=== PATIENT | female | born 2005 | race Caucasian/White ===

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

== ENCOUNTER 2024-05-05 16:33 | Emergency (ER) | payer MEDICAID, SELFPAY ==
[2024-05-05 16:37] VITALS: BP 131/81; PULSE 102; RESP 20; TEMP 36.6; O2SAT 98; BMI 34.0
[2024-05-05 16:47] VITALS: BP 167/88; PULSE 103; O2SAT 100
--- NOTE | 2024-05-05 16:47 | XRR_ITS ---
PROCEDURE INFORMATION: Exam: XR Lumbosacral Spine Exam date and time: 05/05/2024 5:58 PM Age: 19 years old Clinical indication: Low back pain and lumbago with sciatica; Bilateral; Additional info: Back pain x 1 day, hurt trying to carry bed frame, pain radiates from lower back down butt and both legs TECHNIQUE: Imaging protocol: Radiologic exam of the lumbosacral spine. Views: 2 or 3 views. COMPARISON: CT abdomen pelvis w con* [id number] 10/16/2020 10:05 PM FINDINGS: Bones/joints: Normal. No acute fracture. Normal alignment. Soft tissues: Unremarkable. XR/XR lumbar spine 2-3V* [id number] IMPRESSION: No acute findings.
--- NOTE | 2024-05-05 16:48 | ED_ITS ---
HPI - Back Pain/Injury General: Chief Complaint: Back Pain/Injury Stated Complaint: severe low back pain Time Seen by Provider: 05/05/24 16:43 Source: EMS Mode of arrival: EMS Limitations: no limitations History of Present Illness: 19-year-old female states that she had a low back pain over the last 2 days she states she lifted a bed frame 2 days ago and felt a sudden sharp pain in her right lower back states she been having pain in her right back since then she denies any radiation down her leg denies any bowel or bladder incontinence. Patient states that pain is improved with rest much worse with movement. Associated symptoms: Deny abdominal pain, chills, fever(s), nausea or vomiting Related Data Previous Rx's Medication Instructions Recorded doxycycline hyclate 100 mg capsule 100 mg PO BID #28 caps 06/03/23 metronidazole 500 mg tablet 500 mg PO BID #28 tabs 06/03/23 methocarbamol 750 mg tablet 750 mg PO Q6H PRN spasms #20 tabs 05/05/24 naproxen 500 mg tablet (Naprosyn) 500 mg PO BID PRN pain #20 tabs 05/05/24 Allergies Allergy/AdvReac Type Severity Reaction Status Date / Time amoxicillin Allergy Severe ALGY-Anaphy Verified 06/03/23 09:32 laxis adhesive tape Allergy Rash Verified 06/03/23 09:32 Penicillins Allergy ADR-Vomitin Verified 06/03/23 09:32 g Sulfa (Sulfonamide AdvReac Intermediate ADR-Nose Verified 06/03/23 09:32 Antibiotics) Bleed stitches Allergy Mild ALGY-Redness Uncoded 06/03/23 09:32 of Skin stiching Allergy Unknown Uncoded 06/03/23 09:32 Review of Systems Const: Denies: fever(s), chills, body aches or change in appetite ENMT: Denies: throat pain or dental pain Card: Denies: chest pain Resp: Denies: dyspnea GI: Denies: abdominal pain, nausea, vomiting or diarrhea Musc: Reports: back pain; Denies: neck pain Neuro: Denies: weakness in extremities PFS ED PFSH: Medical History No pertinent past medical history neghx: htn,dm,thyroid,dvt/pe PCP: [facility] Fatty liver Recurrent biliary colic Right upper quadrant pain Rectal bleeding in pediatric patient Fracture of distal fibula Surgical History Hx laparoscopic cholecystectomy History of bunionectomy of both great toes Family History Grandfather Diabetes paternal Mother Hypertension Grandmother Hyperlipidemia maternal Family/Other Hyperlipidemia maternal aunt, paternal uncle Father Hyperlipidemia Thyroid disease Denies family history of Colon cancer Ovarian cancer Heart disease Breast cancer Uterine cancer Stroke Physical Exam Const: COMMON NORMALS: no acute distress, patient oriented x3 and healthy appearing HENMT: COMMON NORMALS: normocephalic and atraumatic HEAD & SCALP: normocephalic and atraumatic Neck/C-Spine: COMMON NORMALS: full ROM and supple Chest: COMMONS NORMALS: normal inspection of the chest Resp: COMMON NORMALS: normal respiratory effort Cardio: RATE: tachycardic Back/Pelvis: OTHER: Right lower back tenderness no midline tenderness no saddle anesthesia Extremity: COMMON NORMALS: normal to inspection and full ROM Neuro: COMMON NORMALS: patient oriented x3, moves all extremities and no focal motor deficits Psych: COMMON NORMALS: mental status grossly normal, Normal thought process present and cooperative THOUGHT PROCESS: Normal thought process present Skin: COMMON NORMALS: no rashes or lesions noted and no wounds GENERAL SKIN EXAM: no rashes or lesions noted Course Vital Signs: Vital signs: Vital Signs Temperature 97.9 F 05/05/24 16:37 Pulse Rate 103 H 05/05/24 16:47 Respiratory Rate 20 H 05/05/24 16:37 Blood Pressure 167/88 05/05/24 16:47 Pulse Oximetry 100 05/05/24 16:47 Oxygen Delivery Me thod Room Air 05/05/24 16:47 MDM - Back Pain/Injury Medical Decision Making Patient presents with lumbar strain imaging here is negative is likely a [id number] or injury. No signs of epidural abscess or cord compression. Will place her on Naprosyn Robaxin she is to ice and rest follow-up with PCP return if worsening Medical Records I reviewed the patient's medical records. Labs Laboratory Results HCG, Qual Negative (Negative) 05/05/24 17:15 XR interpretation done by ED provider, pending radiology final review ED provider radiology interpretation(s): xr lumbar spine: no acute abnormality Discharge Plan Discharge Patient Disposition: Home Clinical Impression: Strain of lumbar region Qualifiers: Encounter type: initial encounter Qualified Code(s): S39.012A - Strain of muscle, fascia and tendon of lower back, initial encounter Condition: Stable Prescriptions: New methocarbamol 750 mg tablet 750 mg PO Q6H PRN (Reason: spasms) Qty: 20 0RF Naprosyn 500 mg tablet 500 mg PO BID PRN (Reason: pain) Qty: 20 0RF No Action doxycycline hyclate 100 mg capsule 100 mg PO BID Qty: 28 0RF metronidazole 500 mg tablet 500 mg PO BID Qty: 28 0RF Discharge Orders: Discharge ED (Routine); Ordered 05/05/24 Ordered By: Gerson Donaldson Discharge Diet: Advance as tolerated Discharge Activity: Resume usual activity Patient Instructions: Low Back Strain (ED) Coding Level of Care Code ED Blasting Worker for Fady Moffett
[2024-05-05] MEDS: methocarbamol 750 mg Tablet 1500 MG PO (16:52)
[2024-05-05] MEDS: HYDROcodone-acetaminophen 7.5-325 mg Tablet 1 TAB PO (16:52)
[2024-05-05] MEDS: ketorolac 60 mg/2 mL INJ IM (16:53)
[2024-05-05 17:44] LABS: HCG Qualitative Urine. Negative (Negative)
[2024-05-05 18:31] VITALS: BP 125/71; PULSE 91; O2SAT 100
== END 2024-05-05 18:33 | disposition home or self-care (01) ==
PROVIDERS: Emergency Provider Emergency Medicine
DX: S39.012A Strain of muscle, fascia and tendon of lower back, initial encounter (principal); X50.0XXA Overexertion from strenuous movement or load, initial encounter
CPT/HCPCS: 72100; 81025; 96372; 99284; J1885

== ENCOUNTER → 2025-01-20 15:20 | Outpatient (BNVA) | payer MEDICAID, SELFPAY | PROVIDERS: Visit Provider Nurse Practitioner Women's Health | DX: Z36.87 Encounter for antenatal screening for uncertain dates (principal) | CPT/HCPCS: 76801; 81025 ==

== ENCOUNTER → 2025-03-02 08:33 | Outpatient (BNVA) | payer BC, MEDICAID, SELFPAY | PROVIDERS: Visit Provider Nurse Practitioner Women's Health | DX: Z34.90 Encounter for supervision of normal pregnancy, unspecified, unspecified trimester (principal) | CPT/HCPCS: 80307; 80324; 80359; 84315; 85025; 86592; 86762; 86803; 86850; 86900; 87086; 87340; 87806 ==

== ENCOUNTER → 2025-04-25 10:05 | Outpatient (BNVA) | payer BC, MEDICAID, SELFPAY | PROVIDERS: Visit Provider Nurse Practitioner Women's Health | DX: Z36.9 Encounter for antenatal screening, unspecified (principal) | CPT/HCPCS: 76805 ==

== ENCOUNTER 2025-04-28 06:21 | Outpatient (CLI) | payer BC, MEDICAID, SELFPAY ==
[2025-04-28 06:10] VITALS: BMI 35.3
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
[2025-04-28 06:33] VITALS: BP 153/74; PULSE 100
[2025-04-28 06:36] VITALS: TEMP 36.8
[2025-04-28 07:15] VITALS: BP 152/70; PULSE 100; RESP 18
== END 2025-04-28 07:05 | disposition home or self-care (01) ==
LOC: OPOB 06:22 → OBGYN 06:23
PROVIDERS: Visit Provider Obstetrics & Gynecology
DX: O26.899 Other specified pregnancy related conditions, unspecified trimester (principal); Z3A.00 Weeks of gestation of pregnancy not specified; R10.9 Unspecified abdominal pain
CPT/HCPCS: 76815; 99211

== ENCOUNTER 2025-04-28 07:18 | Emergency (ER) | payer BC, MEDICAID, SELFPAY ==
--- NOTE | 2025-04-28 07:20 | XR_ITS ---
WS: [id number] Right shoulder, 3 views, 04/28/2025 Clinical Data: Trauma Comparison: Right shoulder, 07/25/2022 Findings: No fractures or dislocations are seen. The AC joint is normal. The adjacent right clavicle, right scapula and ribs are normal. The soft tissues are unremarkable. XR/XR shoulder RT min 2V* [id number] Impression: Negative right shoulder.
[2025-04-28 07:28] VITALS: BP 131/92; PULSE 107; RESP 16; TEMP 36.7; O2SAT 100
[2025-04-28] MEDS: tetanus-dipt-pertussis 0.5 mL SDV IM (07:33)
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
[2025-04-28 08:27] VITALS: BP 132/84; PULSE 110; O2SAT 100
== END 2025-04-28 08:26 | disposition home or self-care (01) ==
PROVIDERS: Emergency Provider Family Medicine
DX: M25.511 Pain in right shoulder (principal); S80.211A Abrasion, right knee, initial encounter; S00.81XA Abrasion of other part of head, initial encounter; V28.01XA Electric (assisted) bicycle driver injured in noncollision transport accident in nontraffic accident, initial encounter; F17.210 Nicotine dependence, cigarettes, uncomplicated
CPT/HCPCS: 73030; 90471; 90715; 99283; A4565

== ENCOUNTER 2025-09-10 19:00 | Inpatient (IN) | payer BC, MEDICAID, SELFPAY ==
[2025-09-10] VITALS (52 sets, daily range): BP systolic 116–219; BP diastolic 58–121; PULSE 82–121; RESP 16–18; TEMP 36.2–36.7; O2SAT 77–99; BMI 42.2
[2025-09-10 11:53] LABS: Nitrazine Paper, PH Inconclusive
[2025-09-10 12:29] LABS: Glucose Urine UA Negative (Normal); Nitrate Urine Negative (Negative); Specific Gravity, Urine 1.018 (1.005-1.030)
[2025-09-10 12:31] LABS: Hematocrit 32.0 % (36-47); Hemoglobin 10.30 g/dL (11.27-16.99); Mean Corpuscular HGB Conc 32.2 g/dL (30-55); Mean Corpuscular Hemoglobin 26.5 pg (27-33); Mean Corpuscular Volume 82.3 fl (85-98); Nucleated Red Blood Cells % 0 %; Platelet Count 328 10^3/cmm (157-399); Red Blood Count 3.89 10^6/uL (3.85-5.65); White Blood Count 17.62 10^3/uL (3.29-11.43)
[2025-09-10 12:34] LABS: Add Urine Microscopic? YES
[2025-09-10] MEDS: labetalol 5 mg/mL SDV 20mL 20 MG IVP (12:37)
[2025-09-10 12:38] LABS: PCP Screen Urine Negative (Negative)
[2025-09-10 12:46] LABS: UPRO/UCREAT Ratio 0.63 mg/mg CR
[2025-09-10 12:53] LABS: Alanine Aminotransferase 16 U/L (0-33); Albumin Level 3.3 g/dL (3.5-5.2); Alkaline Phosphatase 193 U/L (35-105); Anion Gap 16.9 (5-19); Aspartate Amino Transferase 18 U/L (0-32); Blood Urea Nitrogen 17 mg/dL (6-20); Calcium 9.7 mg/dL (8.5-10.5); Carbon Dioxide 20 mmol/L (22-29); Chloride 102 mmol/L (98-107); Globulin 3.2 g/dL (1.3-4.6); Glucose 89 mg/dL (65-115); Osmolality Calculated 281 mOsm/kg (285-295); Potassium 3.9 mmol/L (3.5-5.1); Sodium 135 mmol/L (136-145); Total Protein 6.5 g/dL (6.6-8.7); Uric Acid 6.2 mg/dL (2.4-5.7)
[2025-09-10] MEDS: labetalol 5 mg/mL SDV 20mL 40 MG IVP (13:01)
[2025-09-10] MEDS: magnesium sulfate premix 4 GM/100 ML PREMIX IV (13:50)
[2025-09-10] MEDS: magnesium sulfate premix 20 GM/500 ML BAG IV ×2 (13:59→23:24)
[2025-09-10] MEDS: oxytocin 30 UNIT/500 ML BAG IV (14:48)
--- NOTE | 2025-09-10 17:24 | P.ANESASSM_ITS ---
Pre-Anesthetic Assessment Height/Weight: Height 1.78 m Weight 129.727 kg Temp Pulse Resp BP O2 Del Method 98.0 F 87 18 172/104 Room Air 09/10/25 16:59 09/10/25 17:01 09/10/25 16:59 09/10/25 17:01 09/10/25 16:59 Preop Diagnosis: IUP Labor Epidural Was Beta Rogers taken within 24 hours: Yes Last intake: 1100 solid meal clears current. Social Tobacco (vapes) Methamphetamine use 1200 yesterday Airway Submandibular: within normal limits Cervical ROM: within normal limits Mallampati: Class II Dentition: full Comments: Comments: multiple piercing Pulmonary None reported vapes CV/HEM Hypertension Pre-eclampsia, Mg 2G/hr, pitocin. None reported Hepatic fatty liver GI Gastroesophageal Reflux Disease Metabolic Morbid Obesity [facility] None reported Anesthetic Plan Other: Meconium stained amniotic fluid WBC 17,000 abscence of fever or tachycardia. Medications/Allergies Home Medications ?Medication ?Instructions ?Recorded ?Confirmed ?Last Taken ?Type vitamins 30 30 mg iron-10 2 cap PO DAILY 02/1305/11/25 Unknown History mg iron-folic acid 1 mg-om3 capsule mupirocin 2 % topical ointment 1 applic topical BID #2 2 grams 04/28/25 05/11/25 Unknown Rx Allergies Allergy/AdvReac Type Severity Reaction Status Date / Time amoxicillin Allergy Severe ALGY-Anaphy Verified 05/11/25 13:36 laxis adhesive tape Allergy Rash Verified 05/11/25 13:36 Penicillins Allergy ADR-Vomitin Verified 05/11/25 13:36 g Sulfa (Sulfonamide AdvReac Intermediate ADR-Nose Verified 05/11/25 13:36 Antibiotics) Bleed stitches Allergy Mild ALGY-Redness Uncoded 05/11/25 13:36 of Skin stiching Allergy Unknown Uncoded 05/11/25 13:36 Current Medications Generic Name Dose Route Start Last Admin Trade Name Freq PRN Reason Stop Dose Admin Magnesium Sulfate 20 gm in 500 mls @ 50 mls/hr 09/10/25 13:15 09/10/25 13:59 Magnesium Sulfate Premix IV 50 mls/hr .Q10H WILFRED Administration Oxytocin 30 unit in 500 mls @ 1 mls/hr 09/10/25 14:30 09/10/25 16:15 Pitocin IV 4 milliunit/min .Q24H WILFRED 4 mls/hr Protocol Titration 1 MILLIUNIT/MIN Labetalol HCl 20 mg 09/10/25 12:20 09/10/25 12:37 Labetalol 5 Mg/Ml Sdv 20ml IVP 20 mg PRN PRN Administration HYPERTENSION Protocol Labetalol HCl 40 mg 09/10/25 12:20 09/10/25 13:01 Labetalol 5 Mg/Ml Sdv 20ml IVP 40 mg PRN PRN Administration HYPERTENSION Protocol [facility] Anesthesia Medical History (Updated 05/06/25 @ 00:00 by ELLIE Carrington) Obesity No pertinent past medical history neghx: htn,dm,thyroid,dvt/pe PCP: [facility] Fatty liver Recurrent biliary colic Right upper quadrant pain Rectal bleeding in pediatric patient Fracture of distal fibula Surgical History Hx laparoscopic cholecystectomy History of bunionectomy of both great toes Family History Grandfather Diabetes paternal Mother Hypertension Grandmother Hyperlipidemia maternal Family/Other Hyperlipidemia maternal aunt, paternal uncle Father Hyperlipidemia Thyroid disease Denies family history of Colon cancer Ovarian cancer Heart disease Breast cancer Uterine cancer Stroke Social History Smoking and tobacco/nicotine status: current every day tobacco/nicotine user (1/2 pack a day) Female Reproductive History : 2 Data Anesthesia 09/10/25 12:10 09/10/25 12:10 Short CBC 09/10/25 Range/Units 12:10 WBC 17.62 H (3.29-11.43) 10^3/uL Hgb 10.30 L (11.27-16.99) g/dL Hct 32.0 L (36-47) % MCV 82.3 L (85-98) fl Plt Count 328 (157-399) 10^3/cmm Neut % (Auto) 81.7 % Neut # (Auto) 14.39 H (1.8-7.7) 10^3/uL BMP 09/10/25 12:10 Sodium 135 L Potassium 3.9 Chloride 102 Carbon Dioxide 20 L BUN 17 Creatinine 0.9 Glucose 89 Calcium 9.7 Liver Function 09/10/25 Range/Units 12:10 Total Bilirubin 0.2 (0.15-1.2) mg/dL AST 18 (0-32) U/L ALT 16 (0-33) U/L Alkaline Phosphatase 193 H (35-105) U/L Albumin 3.3 L (3.5-5.2) g/dL Urine 09/10/25 Range/Units 11:30 Urine Color Yellow (Yellow) Urine Appearance Clear (CLEAR) Urine pH 5.5 (5-7) Ur Specific [place] 1.018 (1.005-1.030) Urine Protein 2+ A (Negative) Urine Glucose (UA) Negative (Normal) Urine Ketones Negative (Negative) Urine Nitrate Negative (Negative) Urine Bilirubin Negative (Negative) Ur Leukocyte Esterase Negative (Negative) Urine RBC 0-2 (0-2) /hpf Urine WBC 6-10 (0-5) /hpf Blood Bank 09/10/25 12:10 Blood Type O Negative Rho(D) Type Rh negative Antibody Screen Negative Anesthesia Procedures Epidural Time Out Performed: Yes Consents Signed: Procedure Consent Consent: requested by attending/covering physician and from patient Lumbar Level: L3-L4 Epidural position: sitting Epidural procedure: sterile prep of area, 1% lidocaine to numb the area, negative for paresthesia passed, test dose given (5ml), 1.5% xylocaine 1:200k epi, 0.2% Ropivacaine bolus ml (5ml), no systemic response, sterile dressing applied and 0.2% Ropiavacaine @ mls/hr (13ml/hr) Additional Comments: IRASEMA @ 8 cm on second attempt catheter threaded to 15cm. 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
[2025-09-10] MEDS: ROPivacaine premix 200 MG/100 ML PREMIX 10 MG EPIDURAL (18:01)
--- NOTE | 2025-09-10 22:49 | P.HP_ITS ---
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 Patient was found to be ruptured and nahomi irregularly. However, upon arrival patient was having severely elevated blood pressures with no noted issues with hypertension. Patient states he had poor care. Patient initially had care but had missed too many appointments and was fired by her provider and did not seek care elsewhere. Patient is Rh- blood type but did not receive RhoGAM. Patient's lab work did show positive methamphetamines but otherwise unremarkable. After arrival the patient had repeat lab work and did have an elevated protein creatinine ratio. Given her blood pressure and lab findings patient was diagnosed with severe preeclampsia and the patient was started on labetalol protocol and magnesium was also initiated. Patient was not nahomi regularly so her labor was augmented with Pitocin. The patient did have forebag that eventually ruptured and fluid at that time was meconium stained. Present Details : 2 Para: 0 Labs Rubella: Immune RPR: Negative GBS: Unknown Review of Systems 2 Const: Denies: fever(s) or chills Card: Denies: chest pain Resp: Denies: dyspnea : Denies: dysuria, urinary frequency or urinary urgency Musc: Reports: extremity pain and joint pain; Denies: neck pain or back pain Skin/Breast: Denies: rash Medications/Allergies Home Medications ?Medication ?Instructions ?Recorded ?Confirmed ?Last Taken ?Type vitamins 30 30 mg iron-10 2 cap PO DAILY 02/1305/11/25 Unknown History mg iron-folic acid 1 mg-om3 capsule mupirocin 2 % topical ointment 1 applic topical BID #2 2 grams 04/28/25 05/11/25 Unknown Rx Allergies Allergy/AdvReac Type Severity Reaction Status Date / Time amoxicillin Allergy Severe ALGY-Anaphy Verified 05/11/25 13:36 laxis adhesive tape Allergy Rash Verified 05/11/25 13:36 Penicillins Allergy ADR-Vomitin Verified 05/11/25 13:36 g Sulfa (Sulfonamide AdvReac Intermediate ADR-Nose Verified 05/11/25 13:36 Antibiotics) Bleed stitches Allergy Mild ALGY-Redness Uncoded 05/11/25 13:36 of Skin stiching Allergy Unknown Uncoded 05/11/25 13:36 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 PFSH: Medical History (Updated 09/10/25 @ 22:57 by Ady Brower MD) Obesity No pertinent past medical history neghx: htn,dm,thyroid,dvt/pe PCP: [facility] Fatty liver Recurrent biliary colic Right upper quadrant pain Rectal bleeding in pediatric patient Fracture of distal fibula Surgical History Hx laparoscopic cholecystectomy History of bunionectomy of both great toes Family History Grandfather Diabetes paternal Mother Hypertension Grandmother Hyperlipidemia maternal Family/Other Hyperlipidemia maternal aunt, paternal uncle Father Hyperlipidemia Thyroid disease Denies family history of Colon cancer Ovarian cancer Heart disease Breast cancer Uterine cancer Stroke Social History Smoking and tobacco/nicotine status: current every day tobacco/nicotine user (1/2 pack a day) Other Female Reproductive History: Hx Age of Menarche: 9 History History History 2 2 Term 0 0 Miscarriages/Ectopic 1 Living Children 0 Vitals/I&O/Wt Last Vital Signs Temp 97.8 F 09/10/25 18:00 Pulse 93 09/10/25 22:27 Resp 16 09/10/25 19:00 BP 141/68 09/10/25 22:27 Pulse Ox 99 09/10/25 17:52 O2 Del Method Room Air 09/10/25 19:00 09/10/25 09/10/25 09/10/25 06:59 14:59 22:59 Intake Total 181.25 / 181.25 690.950 / 872.200 Output Total 450 / 450 Balance 181.25 / 181.25 240.950 / 422.200 Weight last 48 hrs Weight 129.727 kg Physical Exam 2 Const: COMMON NORMALS: no acute distress and alert Resp: COMMON NORMALS: normal respiratory effort and No retractions Cardio: COMMON NORMALS: no JVD, regular rate and regular rhythm GI: OTHER: Gravid Extremity: COMMON NORMALS: no calf tenderness GENERAL: Yes edema Neuro: COMMON NORMALS: patient oriented x3, moves all extremities and no focal motor deficits Psych: COMMON NORMALS: mental status grossly normal and cooperative Skin: COMMON NORMALS: no rashes or lesions noted Urinary Catheter Management: Moncada Latex Free: Cath Placed During This Visit: yes Reason for Continuing Indwelling Catheter: Required Immobilization for Trauma or Surgery or Anesthesia Urinary Catheter Date of Insertion: 09/10/25 Urinary Catheter Time of Insertion: 14:08 Data 09/10/25 12:10 09/10/25 12:10 Results Labs OB ([facility]): 2 Obstetrics 04/28/25 Blood Type O Negative Today Antibody Screen Negative Today Hct, (36-47) 32.0 % L Today Hgb, (11.27-16.99) 10.30 g/dL L Today Rho(D) Type Rh negative Today Plt Count, (157-399) 328 10^3/cmm Today Hep Bs Antigen, (Nonreactive) Non-reactive 03/02/25 Hepatitis C Antibody, (Nonreactive) Non-reactive 02/13 05/09 Rubella IgG Antibody, (0.0-10.0) 62.5 IU/mL H 5 RPR, (Nonreactive) Nonreactive 03/02/25 HIV 1&2 Ab & HIV 1 Ag, (Non-Reactiv) Non-reactive Uric Acid, (2.4-5.7) 6.2 mg/dL H Today HCG, Qual, (Negative) Positive H 01/20/25 Urine Opiates Screen, (Negative) Negative ng/mL Today Ur Barbiturates Screen, (Negative) Negative ng/mL Today Ur Phencyclidine Scrn, (Negative) Negative ng/mL Today Ur Amphetamines Screen, (Negative) Positive ng/mL H Today U Benzodiazepines Scrn, (Negative) Negative ng/mL Today Urine Cocaine Screen, (Negative) Negative ng/mL Today U Marijuana (THC) Screen, (Negative) Negative ng/mL Tod ay Micro Urine Specimen 03/02/25 A&P Assessment and plan 1. Term : Augment labor with Pitocin. Continue with routine labor management 2. Pre-eclampsia in third trimester: Continue monitoring blood pressure and utilize labetalol protocol to manage elevations. Continue magnesium and appropriate monitoring. 3. Poor patient attendance of care: 4. Drug use affecting in third trimester: PDMP PDMP Reviewed: Not Reviewed Attestations 2 Medical Necessity Statement*: Patient admitted for rupture of membranes and severe preeclampsia. Anticipate at least a 2 midnight stay Coding Level of Care Code Acute Code for Chg Fwd Diagnoses Term Z34.90 Pre-eclampsia in third trimester O14.93 Trimester: third trimester Poor patient attendance of care O09.30 Drug use affecting in third trimester O99.323
--- NOTE | 2025-09-10 22:57 | PM.DELIVERY ---
Delivery Note: Date of delivery: September 10, 2025 Pre-delivery diagnoses: Term , preeclampsia with severe features, poor care Post-delivery diagnoses: Same Procedure: Spontaneous vaginal delivery Op report anesthesia: Epidural Delivering Physician: Dr. Jonny Brower Estimated blood loss (mL): 300 Post Delivery Diagnoses: Pre-eclampsia in third trimester: Qualifiers: Trimester: third trimester Pre-Delivery Course: The patient was admitted for rupture of membranes and severe preeclampsia. The patient responded well to labetalol and magnesium. Patient's labor was augmented with Pitocin and she progressed as expected from there. Scalp electrode was placed to monitor heart tones given mother's body habitus Delivery: This patient was completely dilated patient was placed into the normal lithotomy positions where she started pushing with contractions. After several rounds of pushing the 's head was delivered. Nuchal cord x 1 was noted but delivered through. was delivered to the infant was then placed onto the mother's abdomen where the cord was clamped and cut and handed off to the waiting club car attendant. Thick meconium was noted. Cord blood was obtained. Placenta was then delivered soon after. Review of the perineum showed a small first-degree periurethral tear and bilateral first-degree labial tears. These were repaired with 2-0 chromic. Uterus was firm and below umbilicus and bleeding was controlled. Post-Delivery Status: Stable History History History 2 Term 0 0 Miscarriages/Ectopic 1 Living Children 0 A&P Assessment and plan 1. Pre-eclampsia in third trimester: Continue monitoring blood pressure and utilize labetalol protocol to manage elevations. Continue magnesium and appropriate monitoring. Continue magnesium for up to 24 hours and then we will monitor off for magnesium afterwards. 2. Poor patient attendance of care: 3. 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 Normal spontaneous vaginal delivery: Proceed with post care PDMP PDMP Reviewed: Not Reviewed Coding Level of Care Code Acute Code for Chg Fwd Diagnoses Pre-eclampsia in third trimester O14.93 Trimester: third trimester Poor patient attendance of care O09.30 Drug use affecting in third trimester O99.323 Normal spontaneous vaginal delivery O80
[2025-09-11] VITALS (35 sets, daily range): BP systolic 102–195; BP diastolic 50–98; PULSE 72–100; TEMP 35.6–36.4
[2025-09-11] MEDS: labetalol 5 mg/mL SDV 20mL 40 MG IVP (00:46)
[2025-09-11] MEDS: PRENATAL VIT NO.130/IRON/FOLIC 1 EACH TABLET PO (05:44)
--- NOTE | 2025-09-11 07:22 | PC.NURSE ---
Ha with [facility] division at bedside with Both parents
[2025-09-11] MEDS: magnesium sulfate premix 20 GM/500 ML BAG IV (09:42)
[2025-09-11 14:13] LABS: Hematocrit 26.8 % (36-47); Hemoglobin 8.40 g/dL (11.27-16.99); Mean Corpuscular HGB Conc 31.3 g/dL (30-55); Mean Corpuscular Hemoglobin 26.5 pg (27-33); Mean Corpuscular Volume 84.5 fl (85-98); Platelet Count 259 10^3/cmm (157-399); Red Blood Count 3.17 10^6/uL (3.85-5.65); White Blood Count 15.36 10^3/uL (3.29-11.43)
--- NOTE | 2025-09-11 17:06 | P.PN_ITS ---
BUSINESS ANALYTICS INTERN Subjective 2 Subjective: Interval history: This is a 20-year-old G2, P1 that is status post 1 day from spontaneous vaginal delivery. The patient has been on magnesium since delivery and blood pressures have been doing well. The patient reports that her pain is well-controlled. Vital signs are stable. Urine output is good. Labor: Station: +2 Amniotic Membrane Status: Unknown Monitor Mode: External Contraction Pattern: Regular Post /CS: Patient comments OB post-: no complaints and pain well controlled Vitals/I&O/Wt Last Vital Signs Temp 96.1 F L 09/11/25 14:27 Pulse 98 09/11/25 16:21 Resp 16 09/10/25 19:00 BP 118/57 09/11/25 16:21 Pulse Ox 99 09/10/25 17:52 O2 Del Method Room Air 09/10/25 19:00 09/11/25 09/11/25 09/11/25 06:59 14:59 22:59 Intake Total 1225.816 / 3427.083 1000 / 1000 Output Total 2800 / 3250 1600 / 1600 Balance -1574.184 / 177.083 -600 / -600 Weight last 48 hrs Weight 129.727 kg Physical Exam 2 Const: COMMON NORMALS: no acute distress, patient oriented x3 and alert Neck/C-Spine: COMMON NORMALS: no JVD Resp: COMMON NORMALS: normal respiratory effort and No retractions Cardio: COMMON NORMALS: no JVD, regular rate and regular rhythm RATE: r egular rate RHYTHM: regular rhythm GI: OTHER: Uterus firm and below umbilicus Extremity: COMMON NORMALS: no calf tenderness GENERAL: Yes edema Neuro: COMMON NORMALS: patient oriented x3, moves all extremities and no focal motor deficits SENSORIUM/ORIENTATION: Yes alert Psych: COMMON NORMALS: mental status grossly normal and cooperative Skin: COMMON NORMALS: no rashes or lesions noted GENERAL SKIN EXAM: no rashes or lesions noted Urinary Catheter Management: Moncada Latex Free: Cath Placed During This Visit: yes Reason for Continuing Indwelling Catheter: Accurate Measurement of Urinary Output in Critically Ill Patients Urinary Catheter Date of Insertion: 09/11/25 Urinary Catheter Time of Insertion: 00:00 Data 09/11/25 14:06 09/10/25 12:10 A&P Assessment and plan 1. Pre-eclampsia in third trimester: Stop magnesium and monitor. 2. Poor patient attendance of care: 3. 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 Normal spontaneous vaginal delivery: Continue with routine care. PDMP PDMP Reviewed: Not Reviewed Attestations 2 Medical Necessity Statement*: Patient admitted for labor and preeclampsia. Anticipate discharge tomorrow. Coding Level of Care Code Acute Code for Chg Fwd Diagnoses Pre-eclampsia in third trimester O14.93 Trimester: third trimester Poor patient attendance of care O09.30 Drug use affecting in third trimester O99.323 Normal spontaneous vaginal delivery O80
--- NOTE | 2025-09-11 17:50 | PC.NURSE ---
Pt asked this nurse if she can go outside to smaoke a cigarette, this nurse said no per order not to let her smoke outside
[2025-09-12 04:45] VITALS: TEMP 35.7
[2025-09-12 04:46] VITALS: BP 120/62; PULSE 88
[2025-09-12] MEDS: PRENATAL VIT NO.130/IRON/FOLIC 1 EACH TABLET PO (04:46)
--- NOTE | 2025-09-12 07:16 | PM.OBGYDC ---
Discharge Providers [employer] Date of Admission: 09/10/25 19:00 Date of Discharge: 09/12/25 Attending Provider at Admission: Ady Brower MD Attending Provider at Discharge: Ady Brower MD Diagnoses at Discharge Discharge Diagnosis 1. Pre-eclampsia in third trimester: 2. Poor patient attendance of care: 3. 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 Normal spontaneous vaginal delivery: Reason for Visit Reason for Visit: Poss [facility] Hospital Course Hospital Course This is a 20-year-old G2, P1 that presented at 40 weeks with rupture membranes. The patient was also found to have symptoms consistent with severe preeclampsia. Patient was started on medications to manage blood pressure and IV magnesium. Labor was augmented with Pitocin. The patient had a poor care but did have early ultrasounds to confirm dating. Patient was meth positive both on initial lab work and on arrival at the hospital. Patient underwent augmentation of labor without significant complication and delivered a viable female vaginally. There were no significant complications during delivery and care was unremarkable. The patient remained on magnesium after delivery with no significant issues with her blood pressure. The patient was taken off magnesium and blood pressure remained controlled. Patient was up ambulating and urinating without difficulty. Vital signs remained stable otherwise. Information Peripartum Data: Infant Delivery Method: Vaginal Laceration description: Periurethral - 1st Degree Episiotomy description: None complications: none Physical Exam Const: COMMON NORMALS: no acute distress, patient oriented x3 and alert Neck/C-Spine: COMMON NORMALS: no JVD Resp: COMMON NORMALS: normal respiratory effort and No retractions Cardio: COMMON NORMALS: no JVD, regular rate and regular rhythm RATE: regular rate RHYTHM: regular rhythm GI: OTHER: Uterus firm and below umbilicus Extremity: COMMON NORMALS: no calf tenderness GENERAL: Yes edema Neuro: COMMON NORMALS: patient oriented x3, moves all extremities and no focal motor deficits SENSORIUM/ORIENTATION: Yes alert Psych: COMMON NORMALS: mental status grossly normal and cooperative Skin: COMMON NORMALS: no rashes or lesions noted GENERAL SKIN EXAM: no rashes or lesions noted Urinary Catheter Management: [place] Latex Free: Cath Placed During This Visit: yes, but has since been removed by the nurse Reason for Continuing Indwelling Catheter: Decision to DC Catheter Urinary Catheter Date of Insertion: 09/11/25 Urinary Catheter Time of Insertion: 00:00 Date Urinary Catheter Removed: 09/11/25 Time Urinary Catheter Discontinued: 21:30 History History History 2 Term 0 0 Miscarriages/Ectopic 1 Living Children 0 Discharge Data Studies Completed and Pending Pending at discharge Category Date Time Status Complete Crossmatch Routine Lab 09/10/25 12:10 Results Rho D Immune Globulin Routine Lab 09/10/25 12:10 Results Type and Screen Routine Lab 09/10/25 12:10 Results Laboratory Results WBC 15.36 10^3/uL (3.29-11.43) H 09/11/25 14:06 RBC 3.17 10^6/uL (3.85-5.65) L 09/11/25 14:06 Hgb 8.40 g/dL (11.27-16.99) L 09/11/25 14:06 Hct 26.8 % (36-47) L 09/11/25 14:06 MCV 84.5 fl (85-98) L 09/11/25 14:06 MCH 26.5 pg (27-33) L 09/11/25 14:06 MCHC 31.3 g/dL (30-55) 09/11/25 14:06 RDW 15.8 % (12.1-15.1) H 09/11/25 14:06 Plt Count 259 10^3/cmm (157-399) 09/11/25 14:06 MPV 10.0 fL (7.4-10.4) 09/11/25 14:06 Neut % (Auto) 81.7 % 09/10/25 12:10 Lymph % (Auto) 11.9 % 09/10/25 12:10 [place] % (Auto) 4.6 % 09/10/25 12:10 Eos % (Auto) 0.8 % 09/10/25 12:10 Baso % (Auto) 0.2 % 09/10/25 12:10 Neut # (Auto) 14.39 10^3/uL (1.8-7.7) H 09/10/25 12:10 Lymph # (Auto) 2.1 10^3/uL (0.8-4.8) 09/10/25 12:10 [place] # (Auto) 0.8 10^3/uL (0.2-0.9) 09/10/25 12:10 Eos # (Auto) 0.1 10^3/uL (0.0-0.8) 09/10/25 12:10 Baso # (Auto) 0.0 10^3/uL (0.0-0.1) 09/10/25 12:10 Nucleated RBC % (auto) 0 % 09/10/25 12:10 Nucleated RBCs # 0.0 /100WBC 09/10/25 12:10 Sodium 135 mmol/L (136-145) L 09/10/25 12:10 Potassium 3.9 mmol/L (3.5-5.1) 09/10/25 12:10 Chloride 102 mmol/L (98-107) 09/10/25 12:10 Carbon Dioxide 20 mmol/L (22-29) L 09/10/25 12:10 Anion Gap 16.9 (5-19) 09/10/25 12:10 BUN 17 mg/dL (6-20) 09/10/25 12:10 Creatinine 0.9 mg/dL (0.5-0.9) 09/10/25 12:10 GFR Calculation 79.0 mL/min (90-130) L 09/10/25 12:10 Glucose 89 mg/dL (65-115) 09/10/25 12:10 Calculated Osmolality 281 mOsm/kg (285-295) L 09/10/25 12:10 Uric Acid 6.2 mg/dL (2.4-5.7) H 09/10/25 12:10 Calcium 9.7 mg/dL (8.5-10.5) 09/10/25 12:10 Total Bilirubin 0.2 mg/dL (0.15-1.2) 09/10/25 12:10 AST 18 U/L (0-32) 09/10/25 12:10 ALT 16 U/L (0-33) 09/10/25 12:10 Alkaline Phosphatase 193 U/L (35-105) H 09/10/25 12:10 Lactate Dehydrogenase 196 U/L (135-214) 09/10/25 12:10 Total Protein 6.5 g/dL (6.6-8.7) L 09/10/25 12:10 Albumin 3.3 g/dL (3.5-5.2) L 09/10/25 12:10 Globulin 3.2 g/dL (1.3-4.6) 09/10/25 12:10 Insulin-like GF I Positive 09/10/25 12:10 Urine Color Yellow (Yellow) 09/10/25 11:30 Urine Appearance Clear (CLEAR) 09/10/25 11:30 Urine pH 5.5 (5-7) 09/10/25 11:30 Ur Specific Fries 1.018 (1.005-1.030) 09/10/25 11:30 Urine Protein 2+ (Negative) A 09/10/25 11:30 Urine Glucose (UA) Negative (Normal) 09/10/25 11:30 Urine Ketones Negative (Negative) 09/10/25 11:30 Urine Blood Negative (Negative) 09/10/25 11:30 Urine Nitrate Negative (Negative) 09/10/25 11:30 Urine Bilirubin Negative (Negative) 09/10/25 11:30 Urine Urobilinogen 0.2 mg/dL (Negative) 09/10/25 11:30 Ur Leukocyte Esterase Negative (Negative) 09/10/25 11:30 Urine RBC 0-2 /hpf (0-2) 09/10/25 11:30 Urine WBC 6-10 /hpf (0-5) 09/10/25 11:30 Ur Squamous Epith Cells 0-5 /hpf (0-5) 09/10/25 11:30 Amorphous Sediment Not Reportable 09/10/25 11:30 Urine Bacteria None seen /hpf (NONE) 09/10/25 11:30 Hyaline Casts 1.21 /lpf 09/10/25 11:30 U Random Total Protein 79 mg/dL 09/10/25 11:30 Urine Creatinine 125 mg/dL (28-217) 09/10/25 11:30 Protein/Creatinin Ratio 0.63 mg/mg CR 09/10/25 11:30 Fluid pH (paper) Inconclusive 09/10/25 11:50 Urine Opiates Screen Negative ng/mL (Negative) 09/10/25 11:30 Ur Barbiturates Screen Negative ng/mL (Negative) 09/10/25 11:30 Ur Phencyclidine Scrn Negative ng/mL (Negative) 09/10/25 11:30 Ur Amphetamines Screen Positive ng/mL (Negative) H 09/10/25 11:30 U Benzodiazepines Scrn Negative ng/mL (Negative) 09/10/25 11:30 Urine Cocaine Screen Negative ng/mL (Negative) 09/10/25 11:30 U Marijuana (THC) Screen Negative ng/mL (Negative) 09/10/25 11:30 Blood Type O Negative 09/10/25 12:10 Rho(D) Type Rh negative 09/10/25 12:10 Antibody Screen Negative 09/10/25 12:10 Screen Negative (Negative) 09/11/25 14:06 Vitals Last Vital Signs Temp 96.3 F L 09/12/25 04:45 Pulse 88 09/12/25 04:46 Resp 16 09/10/25 19:00 BP 120/62 09/12/25 04:46 Pulse Ox 99 09/10/25 17:52 O2 Del Method Room Air 09/10/25 19:00 Results Labs OB ([facility]): Obstetrics US 04/28/25 Blood Type O Negative 09/10/25 Antibody Screen Negative 09/10/25 Hct, (36-47) 26.8 % L 09/11/25 Hgb, (11.27-16.99) 8.40 g/dL L 09/11/25 Rho(D) Type Rh negative 09/10/25 Plt Count, (157-399) 259 10^3/cmm 09/11/25 Hep Bs Antigen, (Nonreactive) Non-reactive 03/02/25 Hepatitis C Antibody, (Nonreactive) Non-reactive 03/02/25 Rubella IgG Antibody, (0.0-10.0) 62.5 IU/mL H 03/02/25 RPR, (Nonreactive) Nonreactive 03/02/25 HIV 1&2 Ab & HIV 1 Ag, (Non-Reactiv) Non-reactive 03/02/25 Uric Acid, (2.4-5.7) 6.2 mg/dL H 09/10/25 HCG, Qual, (Negative) Positive H 01/20/25 Urine Opiates Screen, (Negative) Negative ng/mL 09/10/25 Ur Barbiturates Screen, (Negative) Negative ng/mL 09/10/25 Ur Phencyclidine Scrn, (Negative) Negative ng/mL 09/10/25 Ur Amphetamines Screen, (Negative) Positive ng/mL H 09/10/25 U Benzodiazepines Scrn, (Negative) Negative ng/mL 09/10/25 Urine Cocaine Screen, (Negative) Negative ng/mL 09/10/25 U Marijuana (THC) Screen, (Negative) Negative ng/mL 09/10/25 Micro Urine Specimen 03/02/25 Discharge Plan Discharge Patient Disposition: Home Condition: Stable Prescriptions: Continued PNV [id number] 30 mg iron-10 mg iron-1 mg capsule 2 cap PO DAILY mupirocin 2 % ointment 1 applic topical BID Qty: 22 0RF Discharge Order = DC NOW: Discharge Order (Routine); Ordered 09/12/25 Ordered By: Ady Brower Referrals: Ady Brower MD [Physician, Family Practice] - 6 Weeks Discharge Diet: Usual diet Discharge Activity: Limit activity as instructed Patient Instructions: Opioid Safety, Patient Portal & [employer] Instructions Discharge Attestations [employer] Time Spent in Discharge Care*: less than 30 min Coding Level of Care Code Acute Code for Chg Fwd Diagnoses Pre-eclampsia in third trimester O14.93 Trimester: third trimester Poor patient attendance of care O09.30 Drug use affecting in third trimester O99.323 Normal spontaneous vaginal delivery O80
--- NOTE | 2025-09-12 08:10 | ANE.PACU2 ---
Inpatient post-anesthesia follow up: Airway intact: Yes Vital signs: Temperature 98.1 F Pulse Rate 90 Respiratory Rate 17 Blood Pressure 140/92 Pulse Oximetry 98 Oxygen Delivery Me thod Room Air Oxygen Flow Rate Fraction of Inspir ed Oxygen Hydration adequate: Yes Nausea and vomiting: No Pain level: 1 Mental status: Baseline Epidural Start/End: Epidural Start Date: 09/10/25 Epidural Start Time: 17:25 Epidural End Date: 09/10/25 Epidural End Time: 22:57
[2025-09-12 09:00] VITALS: BP 144/93; PULSE 95; RESP 17
[2025-09-12 09:51] VITALS: BP 144/75; PULSE 75; RESP 17
[2025-09-12 10:49] VITALS: BP 140/92; PULSE 90; RESP 17; TEMP 36.7; O2SAT 98
== END 2025-09-12 10:49 | disposition home or self-care (01) | DRG 560 ==
LOC: OPOB 22:31 → OBGYN 22:31
PROVIDERS: Admitting Provider Family Medicine; Visit Provider Family Medicine
DX: O14.14 Severe pre-eclampsia complicating childbirth (principal); O77.0 Labor and delivery complicated by meconium in amniotic fluid; O99.324 Drug use complicating childbirth; F15.90 Other stimulant use, unspecified, uncomplicated; O99.214 Obesity complicating childbirth; O69.81X0 Labor and delivery complicated by cord around neck, without compression, not applicable or unspecified; O71.82 Other specified trauma to perineum and vulva; O70.0 First degree perineal laceration during delivery; Z3A.40 40 weeks gestation of pregnancy; Z37.0 Single live birth
CPT/HCPCS: 36415; 36430; 51702; 59025; 59409; 80053; 80306; 81001; 82570; 83615; 83986; 84112; 84156; 84550; 85025; 85027; 85460; 86850; 86900; 90384; 99211; J2590; J2795; J3475; J3490; J7030; J7120; J7121; J9999